=== PATIENT | female | born 1995 | race Caucasian/White ===

== ENCOUNTER 2017-10-25 23:25 | Emergency (ER) | payer OTHER ==
[~2017-10-25] VITALS: Ht 152.4 cm; Wt 59.0 kg
[2017-10-25 23:29] VITALS: BP 130/85; Ht 152.4 cm; Wt 59.0 kg
== END 2017-10-26 00:20 | disposition left against medical advice (07) ==
LOC: ED 23:25
DX: Z53.21 Procedure and treatment not carried out due to patient leaving prior to being seen by health care provider (principal)